=== PATIENT | male | born 1965 | race Caucasian/White ===

== ENCOUNTER 2017-10-31 14:44 | Observation (INO) | payer OTHER ==
[~2017-10-31] VITALS: Ht 182.9 cm; Wt 84.5 kg
[~2017-10-31 14:44] MED LIST: B-COTAB53 PO; GLUCTAB7 PO; MULT-506 PO; TURM1CAP4 PO
--- NOTE | 2017-10-31 15:01 | EMERGENCY ROOM VISIT NOTE ---
History Report prepared by Mauraibe: Paola Mackey Under the Supervision of: Dr. Patel Singletary D.O. First contact with patient: 14:49 Chief Complaint: CHEST PAIN Stated Complaint: SOB Nursing Triage Summary: pt arrives via EMS reports after walking and carrying a heavy computer developed L side chest pressure with pin prick pains under L axilla and chest area. Pt reports denies increased sob at time of cp History of Present Illness The patient is a 52 year old male who presents to the Emergency Room with complaints of resolved chest pain. He was brought to the ED via EMS. He reports he was driving home from his office after dropping off a heavy computer when the pain started. He stopped at [facility] and had his blood pressure and pulse oximetry checked. He was also given 4 baby Aspirin. He states the pain was mostly located in the left side of his chest and under his left axilla. He describes the pain as feeling "dull" in nature. He also experienced increased shortness of breath. The patient admits to a history of low back/IT band pain for the past 2 months. He also admits to increased GERD symptoms for the past several months. He has no prior cardiac history and has never had an heart catheterization. He denies any family history of heart problems. The patient denies any recent nausea or vomiting. 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 A total of 10 systems reviewed and were otherwise negative. Past Medical & Surgical Medical Problems: (1) Acute electrocardiogram changes (2) ADHD (3) GERD (gastroesophageal reflux disease) Surgical Problems: (1) History of knee surgery Social History Smoking Status: Never Smoker Smokeless Tobacco Use: No Alcohol Use: occasionally Drug Use: none Marital Status: Housing Status: lives alone Occupation Status: employed Current/Historical Medications Scheduled B-Complex W/ Folic Acid (B Complex), 1 TAB PO DAILY Uxndsgctxbo-Pldkhiqjfze-Uvn C- (Glucosamine Chondroitin), 1 TAB PO DAILY Multivitamin (Multivitamin), 1 TAB PO DAILY Turmeric (Curcuma Longa) (Turmeric), 1 CAP PO DAILY Allergies Coded Allergies: Penicillins (Unverified Allergy, Mild, HAPPENED A CHILD - UNSURE REACTION, 10/31/17) Physical Exam Vital Signs Date Time Temp Pulse Resp B/P (MAP) Pulse Ox O2 Delivery O2 Flow Rate FiO2 10/31/17 16:25 71 16 140/96 100 Room Air 10/31/17 16:10 73 10/31/17 15:03 98 Room Air 10/31/17 15:03 98 Room Air 10/31/17 14:48 36.5 78 20 158/95 98 Room Air Physical Exam GENERAL: Patient is awake, alert, in no acute distress, patient is resting comfortably and showing no signs of anxiety EYES: The conjunctivae are clear. The pupils are round and reactive. EARS, NOSE, MOUTH AND THROAT: The nose is without any evidence of any deformity. Mucous membranes are moist tongue is midline NECK: The neck is nontender and supple. RESPIRATORY: Normal respiratory effort is noted there is no evidence of wheezing rhonchi or rales CARDIOVASCULAR: Regular rate and rhythm noted there no murmurs rubs or gallops normal S1 normal S2 GASTROINTESTINAL: The abdomen is soft. Bowel sounds are present in all quadrants. Abdomen is nontender MUSCULOSKELETAL/EXTREMITIES: There is no evidence of gross deformity full range of motion is noted in the hips and shoulders SKIN: There is no obvious evidence of any rash. There are no petechiae, pallor or cyanosis noted. NEUROLOGIC: Patient is awake alert and oriented x3 Medical Decision & Procedures ER Provider Diagnostic Interpretation: Radiology results as stated below per my review and radiologist interpretation: CHEST ONE VIEW PORTABLE CLINICAL HISTORY: CHEST PAIN dyspnea COMPARISON STUDY: No previous studies for comparison. FINDINGS: The bones soft tissues and hemidiaphragms are normal. The cardiomediastinal silhouette is normal. The lungs are clear. The pulmonary vasculature is normal. IMPRESSION: Negative chest. The above report was generated using voice recognition software. It may contain grammatical, syntax or spelling errors. Electronically signed by: Saul Montero M.D. 10/31/2017 3:26 PM Laboratory Results 10/31/17 15:00 Red Blood Count 4.99, Mean Corpuscular Volume 82.8, Mean Corpuscular Hemoglobin 29.9, Mean Corpuscular Hemoglobin Concent 36.1, Mean Platelet Volume 9.4, Neutrophils (%) (Auto) 62.1, Lymphocytes (%) (Auto) 27.1, Monocytes (%) (Auto) 8.8, Eosinophils (%) (Auto) 1.6, Basophils (%) (Auto) 0.2, Neutrophils # (Auto) 3.12, Lymphocytes # (Auto) 1.36, Monocytes # (Auto) 0.44, Eosinophils # (Auto) 0.08, Basophils # (Auto) 0.01 10/31/17 15:00 Test 10/31/17 15:00 10/31/17 17:11 White Blood Count 5.02 K/uL (4.8-10.8) Red Blood Count 4.99 M/uL (4.7-6.1) Hemoglobin 14.9 g/dL (14.0-18.0) Hematocrit 41.3 % (42-52) Mean Corpuscular Volume 82.8 fL (80-100) Mean Corpuscular Hemoglobin 29.9 pg (25-34) Mean Corpuscular Hemoglobin Concent 36.1 g/dl (32-36) Platelet Count 192 K/uL (130-400) Mean Platelet Volume 9.4 fL (7.4-10.4) Neutrophils (%) (Auto) 62.1 % Lymphocytes (%) (Auto) 27.1 % Monocytes (%) (Auto) 8.8 % Eosinophils (%) (Auto) 1.6 % Basophils (%) (Auto) 0.2 % Neutrophils # (Auto) 3.12 K/uL (1.4-6.5) Lymphocytes # (Auto) 1.36 K/uL (1.2-3.4) Monocytes # (Auto) 0.44 K/uL (0.11-0.59) Eosinophils # (Auto) 0.08 K/uL (0-0.5) Basophils # (Auto) 0.01 K/uL (0-0.2) RDW Standard Deviation 38.6 fL (36.4-46.3) RDW Coefficient of Variation 12.9 % (11.5-14.5) Immature Granulocyte % (Auto) 0.2 % Immature Granulocyte # (Auto) 0.01 K/uL (0.00-0.02) Prothrombin Time 10.2 SECONDS (9.0-12.0) Prothromb Time International Ratio 1.0 (0.9-1.1) Activated Partial Thromboplast Time 24.3 SECONDS (21.0-31.0) Partial Thromboplastin Ratio 0.9 Anion Gap 3.0 mmol/L (3-11) Est Creatinine Clear Calc Drug Dose 97.7 ml/min Estimated GFR () 104.2 Estimated GFR (Non- 89.9 BUN/Creatinine Ratio 15.7 (10-20) Calcium Level 8.6 mg/dl (8.5-10.1) Total Bilirubin 0.5 mg/dl (0.2-1) Direct Bilirubin 0.1 mg/dl (0-0.2) Aspartate Amino Transf (AST/SGOT) 18 U/L (15-37) Alanine Aminotransferase (ALT/SGPT) 27 U/L (12-78) Alkaline Phosphatase 55 U/L (45-117) Total Creatine Kinase 232 U/L (39-308) Creatine Kinase MB 5.0 ng/ml (0.5-3.6) Creatine Kinase MB Ratio 2.2 (0-3.0) Total Protein 7.0 gm/dl (6.4-8.2) Albumin 3.6 gm/dl (3.4-5.0) Lipase 185 U/L (73-393) Troponin I < 0.015 ng/ml (0-0.045) Laboratory results per my review. ECG Indication: chest pain Rate (beats per minute): 72 Rhythm: normal sinus Findings: no ectopy, other (No acute ST segment abnormalities) Change: no significant change (No change from 03/16/14) Change: 2nd EKG on 10/31/17: Normal sinus rhythm, rate of 66, inferior T-waves with significant Q-waves, changes are new when compared to earlier tracing. ED Course 1454: The patient was evaluated in room B4. A complete history and physical examination were performed. 1725: I reevaluated the patient. He is resting comfortably. I discussed my recommendation he remain in the hospital for further evaluation and management and he verbalized complete understanding and agreement. 1736: I discussed the patients case with Dr. Brunson, [facility] Hospitalist. The patient will be further evaluated. Medical Decision Prior records/ancillary studies reviewed. Triage Nursing notes reviewed. The patient's history was concerning for chest pain. Differential diagnosis: Etiologies such as cardiac ischemia, aortic dissection, pulmonary embolism, pneumonia, pneumothorax, musculoskeletal, infections, pericarditis, myocarditis , esophageal rupture, gastrointestinal, as well as others were entertained. The patient is a 52-year-old male who presented to the emergency department for an evaluation of chest pain. The patient describes intermittent episodes of left -sided chest pain which radiated to his axilla. The pain was not reproducible but was not classic exertional chest pain in his description. The patient was initially seen at [facility] and was then sent to the emergency department for further evaluation. The patient's heart score was 1. The patient did not have any initial EKG changes which would be consistent with ischemia. His symptoms were resolved prior to arrival. He was treated with aspirin prior to arrival. I discussed the patient's laboratory and radiographic studies with him. I also discussed the limitations of the emergency department workup for chest pain with him. A 2 hour EKG in a 2 hour troponin were obtained. There were significant changes to his second EKG which I felt could be consistent with some underlying ischemia. For this reason I discussed his case with the on- call [facility] hospitalist. They've agreed to evaluate the patient in the emergency department for further management and disposition. The patient was agreeable to this plan. Medication Reconcilliation Current Medication List: was personally reviewed by me Blood Pressure Screening Patient's blood pressure: Elevated blood pressure The patients elevated blood pressure will be further addressed by the inpatient hospital medicine team. Consults Time Called: 1730 Consulting Physician: Dr. Brunson [facility] Hospitalist Returned Call: 1736 I discussed the patients case with Dr. Brunson [facility] Hospitalist. The patient will be further evaluated. Impression Primary Impression: Chest pain Additional Impressions: Abnormal EKG Acute electrocardiogram changes Scribe Attestation The scribe's documentation has been prepared under my direction and personally reviewed by me in its entirety. I confirm that the note above accurately reflects all work, treatment, procedures, and medical decision making performed by me. Departure Information Dispostion Being Evaluated By Hospitalist Referrals Jodi Holder PA-C (PCP) Patient Instructions My [facility] Problem Qualifiers Primary Impression: Chest pain Chest pain type: unspecified Qualified Codes: R07.9 - Chest pain, unspecified
[2017-10-31 15:18] LABS: BASO % 0.2 %; BASO ABS # 0.01 K/uL (0-0.2); COMPLETE YES; EOS % 1.6 %; HEMATOCRIT 41.3 % (42-52); IG% 0.2 %; LYMPH % 27.1 %; LYMPH ABS # 1.36 K/uL (1.2-3.4); MEAN CELL VOLUME 82.8 fL (80-100); MEAN CORPUSCULAR HEMOGLOBIN 29.9 pg (25-34); MEAN CORPUSCULAR HGB CONC 36.1 g/dl (32-36); MEAN PLATELET VOLUME 9.4 fL (7.4-10.4); MONO % 8.8 %; NEUT % 62.1 %; PLATELET COUNT 192 K/uL (130-400); RED BLOOD COUNT 4.99 M/uL (4.7-6.1); WHITE BLOOD COUNT 5.02 K/uL (4.8-10.8)
--- NOTE | 2017-10-31 15:27 | DIAGNOSTIC IMAGING REPORT ---
CHEST ONE VIEW PORTABLE CLINICAL HISTORY: CHEST PAIN dyspnea COMPARISON STUDY: No previous studies for comparison. FINDINGS: The bones soft tissues and hemidiaphragms are normal. The cardiomediastinal silhouette is normal. The lungs are clear. The pulmonary vasculature is normal. IMPRESSION: Negative chest. The above report was generated using voice recognition software. It may contain grammatical, syntax or spelling errors. Electronically signed by: Saul Montero M.D. 10/31/2017 3:26 PM Dictated Date/Time: 10/31/2017 3:26 PM
[2017-10-31 15:29] LABS: PARTIAL THROMBOPLASTIN RATIO 0.9; PROTHROMBIN TIME (PATIENT) 10.2 SECONDS (9.0-12.0)
[2017-10-31 15:47] LABS: ALT/SGPT 27 U/L (12-78); AST/SGOT 18 U/L (15-37); BLOOD UREA NITROGEN 15 mg/dl (7-18); BUN/CREATININE RATIO 15.7 (10-20); CALCIUM 8.6 mg/dl (8.5-10.1); CARBON DIOXIDE 29 mmol/L (21-32); CHLORIDE 104 mmol/L (98-107); CREATININE 0.96 mg/dl (0.60-1.40); GLUCOSE 100 mg/dl (70-99); POTASSIUM 3.8 mmol/L (3.5-5.1); SODIUM 136 mmol/L (136-145)
[2017-10-31 15:52] LABS: ALKALINE PHOSPHATASE 55 U/L (45-117); CKMB/CK RATIO 2.2 (0-3.0)
[2017-10-31] MEDS ORDERED: ACETAMINOPHEN 325 MG TAB PO PRN (19:00)
[2017-10-31] MEDS ORDERED: MAGNESIUM HYDROXIDE SUSP 30 ML UDC PO PRN (19:00)
[2017-10-31] MEDS ORDERED: POLYETHYLENE (MIRALAX) 17 GM PACK PO PRN (19:00)
[2017-10-31] MEDS ORDERED: ALUMINUM/MAGNESIUM/SIMETH (MAALOX MAX) 30 ML UDC PO PRN (19:00)
[2017-10-31] MEDS ORDERED: NITROGLYCERIN 0.4 MG SL PER TAB CHARGE SL PRN (19:00)
[2017-10-31] MEDS ORDERED: ONDANSETRON INJ 2 MG/ML 2 ML VIAL IV PRN (19:00)
--- NOTE | 2017-10-31 19:00 | History and Physical ---
History & Physical Date & Time of Service: Oct 31, 2017 at 18:50 Chief Complaint: SOB Primary Care Physician: Jodi Holder PA-C History of Present Illness Source: patient, hospital records This is a 52 y/o male with a history of back pain, right knee surgery x 2, and GERD who presented to the ED on 10/31 with chest pain. The patient had been lifting some computer monitors earlier in the day. When he was returning to his car, he began to feel intermittent very brief sharp jabs of pain in his left chest and left axilla. He describes the discomfort as quick "pricks" of pain, nothing consistent. He went to [facility] to be evaluated , by his chest pains had resolved by then. He was found to have an elevated blood pressure, but this also resolved after 10 minutes of rest. The patient denies any associated symptoms. He has been having some dyspnea on exertion lately, but he attributes this to being out of shape. The patient also notes some numbness/tingling in his right lower extremity for the last several days. He has a history of problems in his right knee, which has been operated on twice , as well as back pain/injury for which he sees a chiropractor. The patient denies fevers, chills, sweats, palpitations, claudication, cough, wheezing, shortness of breath at rest, nausea, vomiting, abdominal pain, dysuria, hematuria, urinary retention, paralysis, weakness. 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[employer]) Multi-Drug Resistant Organisms History of MDRO: No Allergies Coded Allergies: Penicillins (Unverified Allergy, Mild, HAPPENED A CHILD - UNSURE REACTION, 10/31/17) Home Medications Scheduled B-Complex W/ Folic Acid (B Complex), 1 TAB PO DAILY Ryvzodcwwap-Slovffhaiwv-Pat C- (Glucosamine Chondroitin), 1 TAB PO DAILY Multivitamin (Multivitamin), 1 TAB PO DAILY Turmeric (Curcuma Longa) (Turmeric), 1 CAP PO DAILY Review of Systems Constitutional: No fever, No chills, No sweats Eyes: No worsening of vision, No eye pain, No diplopia ENT: No hearing loss, No nasal symptoms, No trouble swallowing Respiratory: No cough, No wheezing, No shortness of breath Cardiovascular: +Resolved brief intermittent chest pains. No claudication, No palpitations Abdomen: No pain, No nausea, No vomiting Musculoskeletal: +Chronic back pain. No muscle pain, No swelling Genitourinary - Male: No dysuria, No urinary retention, No hematuria Neurologic: +RLE numbness/tingling. No paralysis, No weakness Integumentary: No rash, No itch, No color change Physical Exam Vital Signs Date Time Temp Pulse Resp B/P (MAP) Pulse Ox O2 Delivery O2 Flow Rate FiO2 10/31/17 16:25 71 16 140/96 100 Room Air 10/31/17 16:10 73 10/31/17 15:03 98 Room Air 10/31/17 15:03 98 Room Air 10/31/17 14:48 36.5 78 20 158/95 98 Room Air General appearance: Well-developed, well-nourished, no apparent distress Head: Normocephalic, atraumatic Eyes: Normal inspection, PERRL, EOMI ENT: Normal ENT inspection, hearing grossly normal, pharynx normal Neck: Supple, no JVD, trachea midline Respiratory/Chest: Lungs clear to auscultation, normal breath sounds, no respiratory distress Cardiovascular: Regular rate & rhythm, no gallop, no murmur Abdomen/GI: Normal bowel sounds, non-tender, soft Extremities/Musculoskeletal: Normal inspection, no calf tenderness, no pedal edema Neurological/Psych: Alert, normal mood/affect, oriented x 3 Skin: Normal color, warm/dry, no rash Diagnostics Laboratory Results Results Past 24 Hours Test 10/31/17 15:00 10/31/17 17:04 10/31/17 17:11 Range/Units White Blood Count 5.02 4.8-10.8 K/uL Red Blood Count 4.99 4.7-6.1 M/uL Hemoglobin 14.9 14.0-18.0 g/dL Hematocrit 41.3 42-52 % Mean Corpuscular Volume 82.8 80-100 fL Mean Corpuscular Hemoglobin 29.9 25-34 pg Mean Corpuscular Hemoglobin Concent 36.1 32-36 g/dl Platelet Count 192 130-400 K/uL Mean Platelet Volume 9.4 7.4-10.4 fL Neutrophils (%) (Auto) 62.1 % Lymphocytes (%) (Auto) 27.1 % Monocytes (%) (Auto) 8.8 % Eosinophils (%) (Auto) 1.6 % Basophils (%) (Auto) 0.2 % Neutrophils # (Auto) 3.12 1.4-6.5 K/uL Lymphocytes # (Auto) 1.36 1.2-3.4 K/uL Monocytes # (Auto) 0.44 0.11-0.59 K/uL Eosinophils # (Auto) 0.08 0-0.5 K/uL Basophils # (Auto) 0.01 0-0.2 K/uL RDW Standard Deviation 38.6 36.4-46.3 fL RDW Coefficient of Variation 12.9 11.5-14.5 % Immature Granulocyte % (Auto) 0.2 % Immature Granulocyte # (Auto) 0.01 0.00-0.02 K/uL Prothrombin Time 10.2 9.0-12.0 SECONDS Prothromb Time International Ratio 1.0 0.9-1.1 Activated Partial Thromboplast Time 24.3 21.0-31.0 SECONDS Partial Thromboplastin Ratio 0.9 Sodium Level 136 136-145 mmol/L Potassium Level 3.8 3.5-5.1 mmol/L Chloride Level 104 98-107 mmol/L Carbon Dioxide Level 29 21-32 mmol/L Anion Gap 3.0 3-11 mmol/L Blood Urea Nitrogen 15 7-18 mg/dl Creatinine 0.96 0.60-1.40 mg/dl Est Creatinine Clear Calc Drug Dose 97.7 ml/min Estimated GFR () 104.2 Estimated GFR (Non- 89.9 BUN/Creatinine Ratio 15.7 10-20 Random Glucose 100 70-99 mg/dl Calcium Level 8.6 8.5-10.1 mg/dl Total Bilirubin 0.5 0.2-1 mg/dl Direct Bilirubin 0.1 0-0.2 mg/dl Aspartate Amino Transf (AST/SGOT) 18 15-37 U/L Alanine Aminotransferase (ALT/SGPT) 27 12-78 U/L Alkaline Phosphatase 55 45-117 U/L Total Creatine Kinase 232 39-308 U/L Creatine Kinase MB 5.0 0.5-3.6 ng/ml Creatine Kinase MB Ratio 2.2 0-3.0 Troponin I < 0.015 < 0.015 0-0.045 ng/ml Total Protein 7.0 6.4-8.2 gm/dl Albumin 3.6 3.4-5.0 gm/dl Lipase 185 73-393 U/L Diagnostic Radiology Reviewed the following studies and agree with interpretation as follows: CHEST ONE VIEW PORTABLE CLINICAL HISTORY: CHEST PAIN dyspnea COMPARISON STUDY: No previous studies for comparison. FINDINGS: The bones soft tissues and hemidiaphragms are normal. The cardiomediastinal silhouette is normal. The lungs are clear. The pulmonary vasculature is normal. IMPRESSION: Negative chest. EKG Reviewed the following studies and agree with interpretation as follows: 1st EK bpm, NSR 2nd EK bpm, NSR, new inferior T wave inversions and significant inferior Q waves Impression Assessment and Plan 52 y/o male with a history of back pain, right knee surgery x 2, and GERD who presented to the ED on 10/31 with chest pain. Pt afebrile, VSS on arrival. BP mildly elevated at 158/95 on arrival, improved to 140/96 without medication. No medications received in ED, pt had received 4 baby aspirins at [facility]. CXR shows no acute disease. Initial EKG and troponin negative, no ischemic changes. Repeat EKG showed new T wave inversions and Q waves in inferior leads. Repeat troponin at that time still negative but only 2 hours after first test. Labs otherwise unremarkable. Chest pain, ACS r/o -Admit to telemetry for observation -Trend cardiac enzymes q8h x 3. First set negative -NPO after midnight -Fasting lipid panel tomorrow am -Stress echo in am if negative -EKG q am and prn chest pain -ASA 81 mg PO qam GERD--pt only takes Tums prn DVT prophylaxis -Enoxaparin 40 mg SC q24h -FELIX Ramirez Code Status -Level I, FULL RESUSCITATION STATUS Level of Care Telemetry Resuscitation Status FULL RESUSCITATION VTE Prophylaxis VTE Risk Assessment Done? Y/N: Yes Risk Level: Moderate Given or contraindicated: Enoxaparin (Lovenox)SQ, T.E.D. Stockings, SCD's
[2017-10-31 19:56] VITALS: BP 168/91; PULSE 75; TEMP 36.4; O2SAT 99
[2017-10-31] MEDS ORDERED: ENOXAPARIN 40 MG/0.4 ML SYR SC SCH (20:00)
[2017-10-31 21:39] VITALS: BP 168/91; PULSE 75; TEMP 36.4; O2SAT 99
[2017-10-31 22:41] VITALS: BP 159/103; PULSE 77; TEMP 36.9; O2SAT 98
[2017-10-31 23:25] LABS: CKMB/CK RATIO 2.2 (0-3.0)
[2017-10-31 23:30] VITALS: BP 142/85; Ht 182.9 cm; Wt 84.5 kg
[2017-11-01] MEDS ORDERED: IV FLUIDS COMPLETED PRN (01:00)
[2017-11-01] MEDS ORDERED: INFLUENZA VIRUS QUAD VACCINE 0.5 ML SYR IM. ONE (01:00)
[2017-11-01] MEDS ORDERED: INFLUENZA ADMINISTRATION CHARGE ONE (01:00)
[2017-11-01 03:10] VITALS: BP 126/72; PULSE 75; TEMP 36.5; O2SAT 96
[2017-11-01 07:17] LABS: MEAN CELL VOLUME 82.8 fL (80-100); MEAN CORPUSCULAR HEMOGLOBIN 30.5 pg (25-34); MEAN CORPUSCULAR HGB CONC 36.8 g/dl (32-36); MEAN PLATELET VOLUME 9.1 fL (7.4-10.4); PLATELET COUNT 163 K/uL (130-400); RED BLOOD COUNT 4.95 M/uL (4.7-6.1); WHITE BLOOD COUNT 5.15 K/uL (4.8-10.8)
[2017-11-01 07:54] VITALS: BP 135/81; PULSE 78; TEMP 36.7; O2SAT 95
[2017-11-01 07:54] LABS: BLOOD UREA NITROGEN 13 mg/dl (7-18); BUN/CREATININE RATIO 14.6 (10-20); CARBON DIOXIDE 27 mmol/L (21-32); CHLORIDE 107 mmol/L (98-107); CHOLESTEROL 207 mg/dl (0-200); GLUCOSE 105 mg/dl (70-99); POTASSIUM 3.8 mmol/L (3.5-5.1); SODIUM 139 mmol/L (136-145)
[2017-11-01 07:59] LABS: CHOLESTEROL/HDL RATIO 4.2; HDL CHOLESTEROL 49 mg/dl; LDL CHOLESTEROL CALCULATED 121 mg/dl; TRIGLYCERIDES 186 mg/dl (0-150); VERY LOW DENSITY LIPOPROT CALC 37 mg/dl
[2017-11-01 08:00] VITALS: O2SAT 95
[2017-11-01] MEDS ORDERED: ASPIRIN 81 MG ECTAB PO SCH (09:00)
[2017-11-01] MEDS ORDERED: MULTIVITAMIN TAB PO SCH (09:00)
[2017-11-01 12:00] VITALS: BP 147/104; PULSE 81; TEMP 36.4; O2SAT 97
[2017-11-01 12:24] VITALS: BP 147/104; PULSE 81; TEMP 36.4; O2SAT 97
--- NOTE | 2017-11-01 14:04 | Discharge Instructions ---
Discharge Instructions Date of Service Nov 01, 2017. Admission Reason for Admission: Acute Electrocardiogram Changes, Chest Pain Discharge Discharge Diagnosis / Problem: Axillary pain Discharge Goals Goal(s): Decrease discomfort, Improve function, Increase independence, Improve disease control, Learn about illness, Diagnostic testing, Therapeutic intervention, Prevent Disease Progression Activity Recommendations Activity Limitations: resume your previous activity Exercise/Sports Limitations: as tolerated . Instructions / Follow-Up Instructions / Follow-Up Patient to be discharged home No chest pain report Stress Echocardiogram negative for cardiac disease Likely pain due to musculoskeletal pain Recommend ibuprofen if worsening and refrain from heavy lifting (over 10 lbs) for few days Current Hospital Diet Patient's current hospital diet: AHA Diet (Heart Healthy) Discharge Diet Recommended Diet: Low Fat Diet Pending Studies Studies pending at discharge: no Laboratory Results Lipid Panel Test 11/01/17 07:04 Range/Units Triglycerides Level 186 H 0-150 mg/dl Cholesterol Level 207 H 0-200 mg/dl HDL Cholesterol 49 mg/dl Cholesterol/HDL Ratio 4.2 LDL Cholesterol, Calculated 121 mg/dl Medical Emergencies . Who to Call and When: Medical Emergencies: If at any time you feel your situation is an emergency, please call 911 immediately. . Non-Emergent Contact Non-Emergency issues call your: Primary Care Provider Call Non-Emergent contact if: you have any medication questions . . "Provider Documentation" section prepared by Pola Palomino. . VTE Core Measure Inpt VTE Proph given/why not?: Enoxaparin (Lovenox)SQ, T.E.D. Stockings, SCD's
--- NOTE | 2017-11-01 14:05 | Discharge Summary ---
Discharge Summary Date of Service Nov 01, 2017. Discharge Summary Admission Date: Oct 31, 2017 at 18:50 Discharge Date: Nov 01, 2017 Discharge Disposition: Home Principal Diagnosis: Axilla pain Procedures: Exercise Stress Echocardiogram Medication Reconciliation Continued Medications: B-Complex W/ Folic Acid (B Complex) 1 Tab Tab 1 TAB PO DAILY Ntpgihhrylg-Cljlljcinvh-Azz C- (Glucosamine Chondroitin) 1 Tab Tab 1 TAB PO DAILY Multivitamin (Multivitamin) Tab 1 TAB PO DAILY Turmeric (Curcuma Longa) (Turmeric) 500 Mg Cap 1 CAP PO DAILY Discharge Exam Review of Systems: Constitutional: No fever, No chills, No sweats Eyes: No worsening of vision, No eye pain, No redness, No discharge Respiratory: No cough, No sputum, No wheezing, No shortness of breath Cardiovascular: No chest pain, No orthopnea, No PND, No edema, No claudication Abdomen: No pain, No nausea, No vomiting, No diarrhea Musculoskeletal: + joint pain, No muscle pain, No swelling, No calf pain Genitourinary - Male: No hematuria, No dysuria, No urinary frequency, No urinary urgency Neurologic: No memory loss, No paralysis, No weakness, No numbness/tingling Psychiatric: No depression symptoms, No anhedonism, No anxiety, No insomnia Endocrine: No fatigue, No excessive thirst Integumentary: No rash, No itch Physical Exam: General Appearance: WD/WN, no apparent distress Eyes: normal inspection, PERRL, EOMI, sclerae normal Neck: supple, no adenopathy, thyroid normal, no JVD Respiratory/Chest: chest non-tender, lungs clear, normal breath sounds, no respiratory distress Cardiovascular: regular rate, rhythm, no edema, no gallop, no JVD Abdomen / GI: normal bowel sounds, non tender, soft, no organomegaly Extremities: normal inspection, no calf tenderness, normal capillary refill , no pedal edema Neurologic/Psychiatric: no motor/sensory deficits, alert, normal mood/affect , oriented x 3 Skin: normal color, warm/dry, no rash Lymphatic: no adenopathy Hospital Course 52 y/o male with a history of back pain, right knee surgery x 2, and GERD who presented to the ED on 10/31 with sharp pain in left axilla. Pt states this came about after lifting heavy monitor. Initial EKG with inverted t waves noted in inferior leads but resolved with subsequent EKGS. Left axillary pain, resolved overnight, likely musculoskeletal in nature -Admitted to telemetry for observation -Trend cardiac enzymes q8h x 3 all WNL -Fasting lipid panel determined elev TG -Stress echo in am unremarkable GERD--pt only takes Tums prn, instructed to take zantac if worsening DVT prophylaxis -Enoxaparin 40 mg SC q24h -FELIX Ramirez Code Status -Level I, FULL RESUSCITATION STATUS Total Time Spent: Greater than 30 minutes This includes examination of the patient, discharge planning, medication reconciliation, and communication with other providers. Discharge Instructions Please refer to the electronic Patient Visit Report (Discharge Instructions) for additional information. Additional Copies To Jodi Holder PA-C
--- NOTE | 2017-11-01 15:02 | EXERCISE STRESS ECHO ---
*NOTICE TO RECEIVING DEMOCRAT AGENCY This information is strictly Confidential and protected under [place] law. [place] law prohibits you from making any further disclosure of this information unless further disclosure is expressly permitted by the written consent of the person to whom it pertains or is authorized by law. A general authorization for the release of medical or other information is not sufficient for this purpose. Hospital accepts no responsibility if the information is made available to any other person, INCLUDING THE PATIENT. Interpretation Summary * Name: HARJEET BLANCO Study Date: 11/01/2017 10:25 AM BP: 141/101 mmHg * Patient Location: .2E\S\E207\S\1 HR: 64 * : 1965 (M/d/yyyy) Gender: Male Height: 72 in * Age: 52 yrs Ethnicity: CA Weight: 198 lb * Ordering Physician: Charlotte Campos * Referring Physician: Self, Referred * Performed By: Emily Ny RDCS * * Reason For Study: CHEST PAIN * BSA: 2.1 m2 * -- Conclusions -- * 1. Normal stress echocardiogram at 9.9 METS and a peak heart of 88% predicted maximum. * 2. No exercise-induced chest pain. * 3. No EKG changes. * 4. Baseline echocardiogram notes normal left ventricular systolic function. Procedure Details * ECHOEX, CPT #81683 Left Ventricle * There is borderline concentric left ventricular hypertrophy. * Left ventricular systolic function is normal. * Resting wall motion: Normal. Stress wall motion: Appropriate increase in Left ventricular systolic function and decrease in cavity size. No stress induced segmental wall motion abnormalities. Stress Parameters * The baseline ECG displays normal sinus rhythm. * Stress ECG: No ST changes. No arrhythmias. * The stress portion of this study was personally supervised by the undersigned interpreting physician. * Rest heart rate was '64' BPM. * Rest blood pressure was '141/100' * Maximum heart rate achieved was 146 bpm. * Maximum heart rate was 87 % of maximum age-predicted heart rate. * Total exercise time was '9:00' * Maximum blood pressure was '203/112' * Maximum exercise MET level achieved was '10,10' METS * Maximum treadmill speed was '3.40' miles per hour. * Maximum treadmill elevation was '14'% grade. * Exercise was terminated due to 'ACHIEVING TARGET HR'
== END 2017-11-01 14:26 | disposition home or self-care (01) ==
LOC: EDBD 14:44 → C.EDB 14:45 → C.2E 18:50 → ENRESERV 19:06
PROVIDERS: ADMIT Hospitalist; ATTEND Hospitalist
DX: M79.622 Pain in left upper arm (principal); R94.31 Abnormal electrocardiogram [ECG] [EKG]; Z98.890 Other specified postprocedural states; K21.9 Gastro-esophageal reflux disease without esophagitis; Z88.0 Allergy status to penicillin

== ENCOUNTER → 2018-03-25 | Outpatient (CLI) | payer OTHER ==
[2018-03-25 16:29] LABS: BASO % 0.2 %; BASO ABS # 0.01 K/uL (0-0.2); EOS % 2.3 %; HEMATOCRIT 43.9 % (42-52); HEMOGLOBIN 15.9 g/dL (14.0-18.0); LYMPH % 36.1 %; LYMPH ABS # 1.54 K/uL (1.2-3.4); MEAN CELL VOLUME 81.4 fL (80-100); MEAN CORPUSCULAR HEMOGLOBIN 29.5 pg (25-34); MEAN CORPUSCULAR HGB CONC 36.2 g/dl (32-36); MEAN PLATELET VOLUME 9.5 fL (7.4-10.4); MONO % 7.5 %; MONO ABS # 0.32 K/uL (0.11-0.59); NEUT % 53.9 %; PLATELET COUNT 201 K/uL (130-400); RED CELL DISTRIBUTION WIDTH CV 13.2 % (11.5-14.5); RED CELL DISTRIBUTION WIDTH SD 39.7 fL (36.4-46.3); WHITE BLOOD COUNT 4.27 K/uL (4.8-10.8)
[2018-03-25 16:43] LABS: ALBUMIN 4.3 gm/dl (3.4-5.0); ALT/SGPT 28 U/L (12-78); AST/SGOT 20 U/L (15-37); BLOOD UREA NITROGEN 13 mg/dl (7-18); CALCIUM 9.6 mg/dl (8.5-10.1); CARBON DIOXIDE 27 mmol/L (21-32); CREATININE 1.14 mg/dl (0.60-1.40); GLUCOSE 110 mg/dl (70-99); POTASSIUM 4.3 mmol/L (3.5-5.1); SODIUM 132 mmol/L (136-145)
[2018-03-25 16:52] LABS: ALKALINE PHOSPHATASE 57 U/L (45-117); CHOLESTEROL 243 mg/dl (0-200); LDL CHOLESTEROL CALCULATED 163 mg/dl; TOTAL PROTEIN 7.8 gm/dl (6.4-8.2)
== END | disposition home or self-care (01) ==
LOC: C.LABBFT 12:45
PROVIDERS: ATTEND Physician Assistant Medical
DX: Z00.00 Encounter for general adult medical examination without abnormal findings (principal); Z12.5 Encounter for screening for malignant neoplasm of prostate; F41.9 Anxiety disorder, unspecified